=== PATIENT | female | born 1985 | race Caucasian/White ===

== ENCOUNTER 2016-09-25 08:09 | Inpatient (IN) | payer MEDICAID, OTHER ==
[2016-09-25 09:13] VITALS: BMI 30.3
[2016-09-25 09:46] LABS: BASO % 0.2 % (0.0-2.0); EOS % 0.5 % (0.0-4.0); LYMPH # 1.9 K/uL (1.0-4.3); LYMPH % 18.4 % (20.0-40.0); MEAN CORPUSCULAR HGB CONC 33.2 g/dL (33.0-37.0); MEAN PLATELET VOLUME 9.9 fL (7.2-11.7); MONO # 0.6 K/uL (0.0-0.8); MONO % 6.1 % (0.0-10.0); NRBC % 0.1 % (0.0-2.0); WHITE BLOOD COUNT 10.6 K/uL (4.8-10.8)
[2016-09-25 09:51] LABS: MEAN CELL VOLUME 87.3 fL (81.0-99.0)
[2016-09-25 09:53] LABS: CHLORIDE 104 mmol/L (98-107)
[2016-09-25 09:54] LABS: POTASSIUM 3.9 mmol/L (3.6-5.2); SODIUM 134 mmol/L (132-148)
[2016-09-25 09:56] LABS: ALB/GLOB RATIO 0.9 (1.0-2.1); ALKALINE PHOSPHATASE 295 U/L (38-126); AST/SGOT 22 U/L (14-36); BILIRUBIN,TOTAL 0.6 mg/dL (0.2-1.3); BLOOD UREA NITROGEN 5 mg/dL (7-17); CARBON DIOXIDE 20 mmol/L (22-30); GFR AFRICAN-AMERICAN > 60
[2016-09-25 09:57] LABS: ALT/SGPT 18 U/L (9-52); GLUCOSE,RANDOM 87 mg/dL (65-105)
[2016-09-25 10:05] LABS: URINE BACTERIA RARE (<OCC); URINE BILIRUBIN NEGATIVE (NEGATIVE); URINE BLOOD NEGATIVE (NEGATIVE); URINE COLOR Yellow (YELLOW); URINE GLUCOSE (UA) NORMAL (Normal); URINE KETONE NEGATIVE (NEGATIVE); URINE LEUKOCYTE ESTERASE NEG Leu/uL (Negative); URINE PROTEIN NEGATIVE (NEGATIVE); URINE UROBILINOGEN NORMAL mg/dL (0.2-1.0); WBC URINE 1 /hpf (0-5)
[2016-09-25] MEDS ORDERED: Lactated Ringer's 1,000 ML IV SCH (11:00)
[2016-09-25] MEDS ORDERED: Penicillin G 5 Million Unit Vial IVPB ONE ×2 (11:00→11:31)
--- NOTE | 2016-09-25 11:20 | OBHP ---
Datetime: 09/25/2016 08:09 IP Adm Impression: Term, intrauterine ; No Active Labor IP Adm Impression Other: Elevated Heart Rate Tracing IP Admit Plan: Admit to unit; Initiate labor protocol Admit Comment, IP Provider: 31yo with IUP at 40.1 wks presents here today c/o pelvic pressure a nd occaional pain. Pt was also sent by her OB clinic for evaluation for post date. Pt denies any comp laints like VB or LOF. Uncomplicated course. TOCO- Occasional contractions, FHR- 15- 170 with some variable. 2 episodes of FHR decelations were observed which resolved. Cx- Assessment: IUP at Term with irregular contraction Elevated FHRs Plan: Admit to LND Continue monitoring for labor progress, Re evaluate. Pelvic Type - PN: Adequate Extremities - PN: Normal Abdomen - PN: Normal Back - PN: Normal Breast - PN: Normal Lungs - PN: Normal Heart - PN: Normal Thyroid - PN: Normal Neurologic - PN: Normal HEENT - PN: Normal General - PN: Normal Presentation-Admit: Vertex FHR - Baseline A Provider: 160 Membranes, Provider: Intact Gestation - Est Wks by US: 40.1 IP Chief Complaint: Maternal discomfort NICHD Variability Prov Fetus A: Moderate 6-25bpm NICHD Accel Fetus A IP Provider: 15X15 FHR Category Provider Fetus A: Category II NICHD Decel Fetus A IP Provider: Variable Genitourinary Exam: Normal DTRs - PN: Normal
[2016-09-25] MEDS ORDERED: Morphine 1 mg/ml preservative-free Inj(Duramorph) ONE (13:03)
[2016-09-25] MEDS ORDERED: Phenylephrine 10 mg/ml Inj ONE (13:03)
[2016-09-25] MEDS ORDERED: Succinylcholine Chloride 20 mg/ml Syr (5 ml) IV ONE (13:06)
[2016-09-25] MEDS ORDERED: Ketamine 50 mg/ml Inj (10 ml) ONE (13:06)
[2016-09-25] MEDS ORDERED: Propofol 10 mg/ml Inj (20 ML) ONE (13:06)
[2016-09-25] MEDS ORDERED: Oxycodone/Acetaminophen 5/325 mg Tab PO PRN (14:04)
--- NOTE | 2016-09-25 14:21 | PCM.SURG1 ---
Surgeon's Initial Post Op Note - Surgeon's Notes Surgeon: Dr Barrett Tracer Bullet Section Supervisor: Dr Oakes Type of Anesthesia: Spinal Anesthesia Administered By: Dr Aparicio Pre-Operative Diagnosis: IUP at 40wks with Non Reassuring Heart Rate Tracing Operative Findings: Live Male infant with BW of 7Ibs 5 oz, scores of 9 and 9, Deliverd in cephalic presentation, in the angelina position. Meconium stained amniotic fluid with droplets of meconium scattered in the amniotic fluid. Normal uterus, tubes and ovaries. Fundal placenta. IVF- 1500mls. EBL - 500mls. Urine output - 300mls Post-Operative Diagnosis: Same as Preop diagnosis Operation Performed: Primary Low Transverse Section Specimen/Specimens Removed: Umbilical cord blood; Placenta Estimated Blood Loss: EBL {In ML}: 500 Post-Op Condition: Good Date of Surgery/Procedure: 09/25/16 Time of Surgery/Procedure: 14:22
--- NOTE | 2016-09-25 14:36 | OBDS ---
MATERNAL INFORMATION Provider Comments: Uncomplicated Section with delivery of a viable male infant BW 7 ibs 5 o z and scores of 9 and 9. Copious meconiun in amniotic fluid LABOR SUMMARY EDC: 09/24/2016 00:00 No. Babies in Womb: 1 Attempted: No LABOR INFORMATION Group B Beta Strep: Positive MEMBRANES Rupture of Membranes: 09/25/2016 13:21 Length of Rupture (hrs): 0.02 STAGES OF LABOR Stage 3 hrs: 0 Stage 3 min: 1 CSECTION DELIVERY Primary Indication: Nonreassuring Status CSection Incision: Lower Uterine Transverse Uterine Closure: Double-layer closure BABY A INFORMATION Delivery Date/Time: 09/25/2016 13:22 Method of Delivery: Vaginal Born in Route : No : N/A Forceps: N/A Vacuum Extraction: N/A Shoulder Dystocia : No SHOULDER DYSTOCIA BABY A Delivery Date/Time: 09/25/2016 13:22 PRESENTATION/POSITION BABY A Presentation: Cephalic Cephalic Presentation: Vertex Vertex Position: Left Occipital Anterior Breech Presentation: N/A PLACENTA INFORMATION BABY A Placenta Delivery Time : 09/25/2016 13:23 Placenta Method of Delivery: Manual Removal Placenta Status: Delivered SCORES BABY A Heart Rate 1 min: >100 bpm Resp Effort 1 min: Good Cry Reflex Irritability 1 min: Cough or Sneeze or Pulls Away Muscle Tone 1 min: Active Motion Color 1 min: Body [place], Extremities Blue Resuscitation Effort 1 min: N/A SCORE 1 MIN: 9 Heart Rate 5 min: >100 bpm Resp Effort 5 min: Good Cry Reflex Irritability 5 min: Cough or Sneeze or Pulls Away Muscle Tone 5 min: Active Motion Color 5 min: Body [place], Extremities Blue Resuscitation Effort 5 min: N/A SCORE 5 MIN: 9 INFORMATION BABY A Gestational Age at Delivery: 40.1 Gestational Status: Post-term Infant Outcome : Liveborn Condition : Stable Sex: Male IDENTIFICATION/MEDS BABY A ID Band Number: [id number] ID Band Location: Left Leg; Left Arm Sensor Applied: Yes Sensor Number: [id number] Sensor Location : Cord Clamp WEIGHT/LENGTH BABY A Infant Birthweight (gms): 3305 Infant Weight (lb): 7 Infant Weight (oz): 5 Length Inches: 19.75 Length cms: 50.2 CORD INFORMATION BABY A No. Cord Vessels: 3 Nuchal Cord : N/A Nuchal Cord Other: n/a True Knot: n/a Infant Cord pH Baby Arterial: n/a Cord pH Baby Venous: 7.20 Cord Blood Taken: Yes Banking/Donate Info: n/a Infant Suction: Mouth; Nose ASSESSMENT BABY A Infant Complications: Extended Bradycardia; Multiple Late Decels; Multiple Variable Decels; Me conium Physical Findings at Delivery: [place] Spots Respirations: Appears Normal Cut Off Saw Grader/ALS Called : No Care By: rodrigo sesay Transferred To: Remains with Mother
--- NOTE | 2016-09-25 15:19 | OP ---
PROCEDURE DATE: 09/25/2016 PREOPERATIVE DIAGNOSES: Intrauterine at 40 weeks and 1 day with non-reassuring heart tracing. POSTOPERATIVE DIAGNOSES: Intrauterine at 40 weeks and 1 day with non-reassuring hear t tracing. PROCEDURE DONE: A primary low transverse section performed on 09/25/2016. SURGEON: Dr. Barrett BIOLOGICAL TECHNICIAN: Dr. Oakes. Assistance to this procedure was needed for exposure of tissues and help in de livery of the baby. The front office medical assistant remained with the procedure throughout its entire length. TYPE OF ANESTHESIA: Spinal. ANESTHESIA ADMINISTERED BY: Dr. Chidi Aparicio. OPERATIVE FINDINGS: A live male with weight of 7 pounds and 5 ounces, scores of 9 in the first and fifth minutes respectively, delivered in cephalic presentation in the left occiput anterior position. There was a meconium stained amniotic fluid with droplets of meconium scattered t hroughout its length. The uterus as well as the fallopian tubes and ovaries were normal. Placenta w as fundal. INTRAVENOUS FLUID INTAKE: 1500 mL. ESTIMATED BLOOD LOSS: 500 mL. URINE OUTPUT: 300 mL of clear urine at the end of procedure. COMPLICATIONS: There were none. SPECIMENS TAKEN FOR ANALYSIS: The umbilical cord blood and placenta. DESCRIPTION OF PROCEDURE: After obtaining informed consent, the patient was sent to the OR with IV r unning and Montague catheter in place. After adequate spinal anesthesia, the patient was put in a supin e position with a left lateral tilt. The patient was then prepped and draped in a sterile fashion. A Pfannenstiel skin incision was made using a scalpel about 2.5 cm from the pubic symphysis. This in cision was carried through the subcutaneous tissues until the rectus fascia was identified. A transv erse incision was made in the rectus fascia and was extended to both sides by means of curved Ruiz sc issors. The rectus fascia was lifted off the underlying rectus muscles both superiorly and inferiorl y by means of blunt dissection. The rectus muscle was in the midline to expose the periton eum, which was tented between 2 Corinna clamps and sharply entered with Metzenbaum scissors and with go od visualization of the bladder. The vesicouterine fold of peritoneum was identified, incised in a t ransverse fashion and retracted inferiorly to expose the lower uterine segment. A low transverse inc ision was made using the scalpel. This incision was sent through the myometrial layers until the amn iotic fluid membranes were seen. The incision was extended to both sides in a blunt fashion. The ba by, which was in cephalic presentation, was delivered. The mouth and nostrils were bulb suctioned an d the 3-vessel cord was clamped and cut and given to the nurse. Umbilical cord blood was ob tained for analysis and the placenta was manually removed from the uterine cavity. The uterus was th en brought out of the abdominal cavity and the uterine cavity cleaned of all debris using the dry lap arotomy pads. The uterine incision was then closed in 2 layers using Vicryl #0; the first layer in a running locked fashion and the second layer in a running fashion and imbricating the first layer. O nce hemostasis was noted, irrigation of the pelvis was done using warmed normal saline. The uterus w as returned into the abdominal cavity and all laparotomy pads and instruments were removed. Attentio n was then turned to the anterior abdominal wall, which was closed in layers with 2-0 Vicryl for the peritoneum and the rectus muscles. The rectus fascia was reapproximated using Vicryl #0. The subcut aneous tissues were brought together using #2-0 plain. The skin was reapproximated using #4-0 Vicryl . All counts of instruments, laparotomy pads, and needles used were correct x 3 and the patient was sent to the recovery room awake and in stable condition. Stan Barrett MD cc: [id number] TT: 09/25/2016 15:18:32 en
[2016-09-25] MEDS ORDERED: cefOXitin IV 2 gm in Saline 2 GM in Sodium Chloride 0.9% 50 ML IV SCH (23:00)
[2016-09-25] MEDS: cefOXitin IV 2 gm in Dextrose 2 GM/50 ML BAG IVPB SCH (23:46)
--- NOTE | 2016-09-26 07:38 | OBPPN ---
Datetime: 09/26/2016 07:33 PP Pain Prov: Within normal limits PP Nausea Prov: Denies PP Flatus Prov: No PP BM Prov: No PP Heart Prov: Normal PP Lungs Prov: Normal PP Abdomen/Uterus Prov: Normal PP Lochia Prov: Normal PP CVA Tenderness Prov: Normal PP Extremities Prov: Normal PP Impression Prov: Normal progression PP Plan Prov: Continue present management PP Progress Note Prov: S-patient reports that her pain is well controlled. she denies nausea, vomiti ng, headache, chest pain, shortness of breath,numbness or tingling in hands and feet O-VSS AFebrile Fundus firm and below umbilcius Incision clean, dry and intact extremities no calf tenderness A/P Patient s/p csection pod 1 doing well -advance diet -po fluids -encourage IS use -continue routine post op care -follow up am cbc Vital Signs Provider PP: Reviewed; Within Normal Limits
[2016-09-26] MEDS ORDERED: cefOXitin IV 2 gm in Dextrose 2 GM/50 ML BAG IVPB ONE (08:01)
[2016-09-26 08:13] LABS: EOS % 0.1 % (0.0-4.0); HEMATOCRIT 29.2 % (34.0-47.0); LYMPH # 1.8 K/uL (1.0-4.3); MEAN CELL VOLUME 87.9 fL (81.0-99.0); MEAN CORPUSCULAR HEMOGLOBIN 28.7 pg (27.0-31.0); MEAN CORPUSCULAR HGB CONC 32.7 g/dL (33.0-37.0); MEAN PLATELET VOLUME 9.5 fL (7.2-11.7); MONO # 0.9 K/uL (0.0-0.8); NRBC % 0.1 % (0.0-2.0); RED CELL DISTRIBUTION WIDTH 15.8 % (11.5-14.5)
[2016-09-26] MEDS: cefOXitin IV 2 gm in Dextrose 2 GM/50 ML BAG IVPB SCH ×2 (08:30→15:30)
[2016-09-26] MEDS ORDERED: Bisacodyl 5mg EC Tab PO ONE (15:00)
--- NOTE | 2016-09-27 07:36 | OBPPN ---
Datetime: 09/27/2016 07:32 PP Pain Prov: Within normal limits PP Nausea Prov: Denies PP Flatus Prov: Yes PP Breasts Prov: Normal PP Heart Prov: Normal PP Lungs Prov: Normal PP Abdomen/Uterus Prov: Normal PP Lochia Prov: Normal PP Vulva/Perineum Prov: Normal PP CVA Tenderness Prov: Normal PP Extremities Prov: Normal PP C/S Incision Prov: Normal PP Progress Prov: Normal PP Comments Phys Exam Prov: Abd: Soft, NT,BS- present UT- Firm and well contracted Incision: Clean and dry PP Impression Prov: Normal progression PP Plan Prov: Continue present management PP Progress Note Prov: s/p Section, POD #2 Clinically Stable. Plan: Continue care. Vital Signs Provider PP: Reviewed
[2016-09-27 09:13] VITALS: RESP 18
[2016-09-27 17:23] VITALS: O2SAT 99
--- NOTE | 2016-09-28 07:29 | OBPPN ---
Datetime: 09/28/2016 07:26 PP Pain Prov: Within normal limits PP Nausea Prov: Denies PP Flatus Prov: Yes PP BM Prov: Yes PP Breasts Prov: Normal PP Abdomen/Uterus Prov: Normal PP Lochia Prov: Normal PP C/S Incision Prov: Normal PP Comments Phys Exam Prov: funduis below umblicus ext no edemqa,no calf ten b/l breast engorged with milf, no mastidits incision clean and dry PP Impression Prov: Normal progression PP Plan Prov: Discharge PP Progress Note Prov: pt was seen at bed side, pain under control,no n/v, tolerating deit, voiding, mibn lochia,+flatus.no fever pod#3 s/p c/s dc home no sex percocert prn dicloxciiilin x 1 week f/u in clinic in 1week Vital Signs Provider PP: Reviewed; Within Normal Limits
--- NOTE | 2016-09-28 07:31 | OBDCSUM ---
Datetime: 09/28/2016 07:29 Discharged to, Provider: Home Follow up at, Provider: 1week Disch Instr Activity: Normal activity Disch Instr Diet: Regular Discharge Diagnosis, Provider: Term Delivered Follow up in weeks, Provider: clinic Disch Activity Restrictions: No exercising; No lifting; No driving; Minimize walking; Minimize stair -climbing; No sexual activity; Nothing in vagina - [place], tampons, douche Discharge Comment, Provider: no asex percocet prn f/u in clinic in 1week dicloxcillin
[2016-09-28 08:09] VITALS: BP 112/66; PULSE 66; TEMP 98.6
== END 2016-09-28 17:37 | disposition home or self-care (01) | DRG 371 ==
LOC: C.EROB 08:09 → C.4D 09:26 → C.4M 17:10
PROVIDERS: ADMIT Obstetrics & Gynecology; ATTEND Obstetrics & Gynecology
PROC: 10D00Z1 Extraction of Products of Conception, Low, Open Approach (ICD-10-PCS; principal; 2016-09-25)
DX: O76 Abnormality in fetal heart rate and rhythm complicating labor and delivery (principal); O48.0 Post-term pregnancy; O77.0 Labor and delivery complicated by meconium in amniotic fluid; O99.824 Streptococcus B carrier state complicating childbirth; Z3A.40 40 weeks gestation of pregnancy; Z37.0 Single live birth